=== PATIENT | male | born 1980 | race Caucasian/White ===

== ENCOUNTER 2023-11-25 01:01 | Emergency (ER) | payer SELFPAY ==
[2023-11-25 01:20] VITALS: BP 138/72; PULSE 82; RESP 18; TEMP 98.6
[2023-11-25] MEDS ORDERED: ACETAMINOPHEN 325MG TABLET PO ONE (02:30)
[2023-11-25] MEDS ORDERED: TETANUS, DIPHTHERIA, PERTUSSIS VAC/PF 0.5ML (>10YR OLD) IM ONE (02:30)
[2023-11-25] MEDS ORDERED: BACITRACIN 14GM TUBE TOP ONE (02:30)
[2023-11-25] MEDS ORDERED: ACET-2708 MT (02:56)
[2023-11-25] MEDS ORDERED: SILV20CR13 TP (02:56)
== END 2023-11-25 03:51 | disposition home or self-care (01) ==
LOC: ER 01:01
DX: S41.102A Unspecified open wound of left upper arm, initial encounter (principal); S90.811A Abrasion, right foot, initial encounter; V26.49XA Other motorcycle driver injured in collision with other nonmotor vehicle in traffic accident, initial encounter; Y93.89 Activity, other specified; Y92.89 Other specified places as the place of occurrence of the external cause; Y99.8 Other external cause status
CPT/HCPCS: 99281; 99283